=== PATIENT | female | born 1975 | race Caucasian/White ===

== ENCOUNTER 2018-05-13 11:06 | Emergency (ER) | payer BC ==
[2018-05-13 12:53] VITALS: BP 101/64
--- NOTE | 2018-05-13 13:24 | UC ---
Skin Complaint HPI - HPI Summary HPI Summary: 43-year-old woman comes in with a chief complaint of left hand pain and redness. Patient had an IV placed in her left hand on May 08, 2018. She's had bruising at that site and some tenderness since that time. Over the last day she's noticed some redness in the area. She does get pain that travels up the outside of her arm. Denies any pain in the medial aspect of the upper arm. Pain is worse with movement better with rest. No fevers or chills no shortness of breath no chest pain. - History of Current Complaint Chief Complaint: UCUpperExtremity Time Seen by Provider: 05/13/18 12:48 Stated Complaint: LT HAND SKIN CONCERN Hx Last Menstrual Period: 05/08/18 Pain Intensity: 4 - Allergy/Home Medications Allergies/Adverse Reactions: Allergies Allergy/AdvReac Type Severity Reaction Status Date / Time amoxicillin Allergy Hives Verified 05/13/18 12:32 sulfamethoxazole Allergy Hives Verified 05/13/18 12:32 [From Bactrim] trimethoprim [From Bactrim] Allergy Hives Verified 05/13/18 12:32 Home Medications: Home Medications Acetaminophen [Acetaminophen Extra Strength] 1,000 mg PO ONCE PRN 05/13/18 [ History Confirmed 05/13/18] Montelukast Sodium TAB* [Singulair TAB*] 5 mg PO BEDTIME 05/13/18 [History Confirmed 05/13/18] Omeprazole 20 mg PO QAM 05/13/18 [History Confirmed 05/13/18] Probiotic 10 1 tab PO DAILY 05/13/18 [History Confirmed 05/13/18] Vitamins B12, D 1 tab PO DAILY 05/13/18 [History Confirmed 05/13/18] PMH/Surg Hx/FS Hx/Imm Hx Previously Healthy: Yes GI/ History: Gastroesophageal Reflux - Surgical History Surgical History: Yes Surgery Procedure, Year, and Place: cardiac as infant; uterine ablation 05/08/18 - Family History Known Family History: Positive: Non-Contributory - Social History Alcohol Use: Rare Substance Use Type: None Smoking Status (MU): Former Smoker When Did the Patient Quit Smoking/Using Tobacco: 2008 Review of Systems All Other Systems Reviewed And Are Negative: Yes Constitutional: Positive: Negative Skin: Positive: Rash - SEE HPI, Bruising Eyes: Positive: Negative ENT: Positive: Negative Respiratory: Positive: Negative Cardiovascular: Positive: Negative Gastrointestinal: Positive: Negative Motor: Positive: Negative Neurovascular: Positive: Negative Musculoskeletal: Positive: Other: - SEE HPI Neurological: Positive: Negative Psychological: Positive: Negative Is Patient Immunocompromised?: No Physical Exam Triage Information Reviewed: Yes Appearance: Well-Appearing, No Pain Distress, Well-Nourished Vital Signs: Initial Vital Signs Temp 98.7 F 05/13/18 12:36 Pulse 66 05/13/18 12:36 Resp 18 05/13/18 12:36 BP 101/64 05/13/18 12:36 Pulse Ox 100 05/13/18 12:36 Vital Signs Reviewed: Yes Eye Exam: Normal Eyes: Positive: Conjunctiva Clear Neck exam: Normal Neck: Positive: Supple Respiratory: Positive: Lungs clear, Normal breath sounds, No respiratory distress Cardiovascular: Positive: RRR Musculoskeletal: Positive: Other: - The left arm has an area of ecchymosis on the dorsum of the left hand. Fingers wrist elbows shoulder have full range of motion full-strength normal capillary refill normal radial pulse. No sensation deficit. Patient is nontender to palpation on the medial aspect of the upper arm in the basilic vein distribution. Neurological Exam: Normal Neurological: Positive: Alert, Muscle Tone Normal Psychological Exam: Normal Psychological: Positive: Age Appropriate Behavior Skin: Positive: Other - On the dorsum of the left hand between the first and second metacarpals there is an area of ecchymosis 3 cm in diameter. In the center that there is an area of redness that is 1 cm diameter. There is no streaking. NO Drainage. Course/Dx - Course Course Of Treatment: With the area of redness recently forming is a concern of cellulitis. Patient is allergic to amoxicillin and sulfa she gets rashes with both of those. She is not sure she's ever taking Keflex. Therefore I'll start her on doxycycline 100 mg by mouth twice a day. She can also take ibuprofen for inflammation. She was placed in a cock-up splint by nursing and neurovascularly intact after placement of a cock-up splint to help decrease any inflammation. She is not tender on the medial aspect of the upper arm and the basilic vein distribution. At this time does not appear that she has an upper extremity DVT. We discussed the signs and symptoms of venous thrombosis said the patient can get reevaluated if she has any of those symptoms. Otherwise she needs to reevaluated if her condition worsens or she has any questions or concerns. - Diagnoses Provider Diagnosis: Cellulitis of left hand, Traumatic ecchymosis of left hand Discharge - Sign-Out/Discharge Documenting (check all that apply): Patient Departure All imaging exams completed and their final reports reviewed: No Studies - Discharge Plan Condition: Stable Disposition: HOME Prescriptions: DOXYcycline CAP(*) [DOXYcycline 100MG CAP(*)] 100 mg PO BID #20 cap Patient Education Materials: Cellulitis (ED), Contusion in Adults (ED) Referrals: Christopher Salazar MD [Primary Care Provider] - Additional Instructions: FOLLOW UP WITH YOUR DOCTOR IF NOT COMPLETELY IMPROVED. TAKE IBUPROFEN 600MG EVERY 6 HOURS NEEDED. GET RECHECKED FOR ANY WORSENING OF YOUR CONDITION; SPREAD OF INFECTION, PAIN, FEVER, CHEST PAIN, SHORTNESS OF BREATH OR QUESTIONS OR CONCERNS. - Billing Disposition and Condition Condition: STABLE Disposition: Home
== END 2018-05-13 13:35 | disposition home or self-care (01) ==
LOC: UCCORT 11:06
DX: S60.222A Contusion of left hand, initial encounter (principal); L03.114 Cellulitis of left upper limb; K21.9 Gastro-esophageal reflux disease without esophagitis; Z88.0 Allergy status to penicillin; Z88.2 Allergy status to sulfonamides; Z79.899 Other long term (current) drug therapy; Z87.891 Personal history of nicotine dependence; X58.XXXA Exposure to other specified factors, initial encounter; Y92.9 Unspecified place or not applicable
CPT/HCPCS: 99203; G0463